=== PATIENT | female | born 1945 | race American Indian/Alaskan Native ===

== ENCOUNTER 2022-11-03 06:19 | Day surgery (SDC) | payer MEDICARE, OTHER ==
[~2022-11-03 06:19] MED LIST: CYCLOPENTOLATE 1% OPHTH DROPS 2 ML ONE; KETOROLAC 0.45% OPHTH DROPS ONE; PHENYLEPHRINE 2.5% OPHTH 2 ML DROPS ONE; PROPARACAINE 0.5% OPHTH DROPS 15 ML ONE
[2022-11-03] MEDS ORDERED: LACTATED RINGERS 1,000 ML IV ONE (06:23)
[2022-11-03] MEDS ORDERED: BRIMONIDINE 0.2% OPHTH DROPS 5 ML ONE (06:58)
[2022-11-03] MEDS ORDERED: EPINEPHrine 1 MG/ML AMP ONE (06:58)
[2022-11-03] MEDS ORDERED: TIMOLOL 0.5% OPHTH DROPS ONE (06:58)
[2022-11-03] MEDS ORDERED: TRIAMCIN/MOXIFLOX OPHTHALMIC 0.6 ML VIAL IO ONE ×2 (06:58→07:40)
[2022-11-03] MEDS ORDERED: BSS/LIDOCAINE/EPINEPHRINE 1 ML VIAL ONE (06:59)
--- NOTE | 2022-11-03 07:05 | ANESTHESIA ---
Pre-Anesthesia VS, & Labs - Diagnosis left senile combined cataract - Procedure left cataract extraction with IOL Vital Signs: Temp Pulse Resp BP Pulse Ox O2 Flow Rate 36.3 C L 82 16 129/70 97 11/03/22 06:31 11/03/22 06:31 11/03/22 06:31 11/03/22 06:31 11/03/22 06:31 Height: 5 ft 6 in Weight (kg): 81 kg Body Mass Index: 28.8 BMI Classification: Overweight - NPO >8 hours - Is Patient ?: No - Lab Results Current Lab Results: Laboratory Tests 11/03/22 06:49: POC Whole Bld Glucose 130 H Home Medications and Allergies Home Medications: Ambulatory Orders Ascorbic Acid [Vitamin C] 500 mg PO DAILY 11/02/22 Atorvastatin Calcium 40 mg PO DAILY PM 11/02/22 Cholecalciferol (Vitamin D3) [Vitamin D3] 1,000 unit PO DAILY 11/02/22 Clopidogrel Bisulfate [Plavix] 75 mg PO DAILY 11/02/22 Colestipol HCl [Colestid] 1 gm PO DAILY 11/02/22 Docusate Sodium 100Mg Capsule [Colace 100Mg Capsule] 1 tab ORAL PRN PRN 11/02/22 Famotidine 40 mg PO DAILY 11/02/22 Isosorbide Mononitrate [Isosorbide Mononitrate ER] 60 mg PO DAILY 11/02/22 Multivitamin 1 each PO DAILY 11/02/22 Pantoprazole [Protonix] 40 mg PO DAILY 11/02/22 Sertraline [Zoloft] 25 mg PO DAILY 11/02/22 Torsemide 10 mg PO DAILY 11/02/22 carvediloL [Coreg] 25 mg PO DAILY PM 11/02/22 Ascorbic Acid [Vitamin C] 500 mg PO DAILY 11/02/22 Atorvastatin Calcium 40 mg PO DAILY PM 11/02/22 Cholecalciferol (Vitamin D3) [Vitamin D3] 1,000 unit PO DAILY 11/02/22 Clopidogrel Bisulfate [Plavix] 75 mg PO DAILY 11/02/22 Colestipol HCl [Colestid] 1 gm PO DAILY 11/02/22 Docusate Sodium 100Mg Capsule [Colace 100Mg Capsule] 1 tab ORAL PRN PRN 11/02/22 Famotidine 40 mg PO DAILY 11/02/22 Isosorbide Mononitrate [Isosorbide Mononitrate ER] 60 mg PO DAILY 11/02/22 Multivitamin 1 each PO DAILY 11/02/22 Pantoprazole [Protonix] 40 mg PO DAILY 11/02/22 Sertraline [Zoloft] 25 mg PO DAILY 11/02/22 Torsemide 10 mg PO DAILY 11/02/22 carvediloL [Coreg] 25 mg PO DAILY PM 11/02/22 Anes History & Medical History - Anesthetic History Anesthesia Complications: reports: No previous complications - Medical History Cardiovascular: reports: Congestive heart failure, Hypertension, [place] Pulmonary: reports: None Gastrointestinal: reports: None Musculoskeletal: reports: None Endocrine/Autoimmune: reports: Type 2 diabetes Smoking Status: Never smoker History of Cancer?: No - Surgical History General: reports: Cholecystectomy Gynecologic: reports: Hysterectomy Orthopedic: reports: Hip replacement, Knee replacement, Other Exam General: Alert, Oriented x3 Dental: WNL Mouth Opening: Greater than 4 Fingerbreadths Neck Mobility: Normal Mallampati classification: III Thyromental Distance: greater than 6 cm Respiratory: Lungs clear Cardiovascular: Regular rate Plan Anesthesia Type: MAC Consent for Procedure(s) Verified and Reviewed: Yes Code Status: Attempt Resuscitation ASA classification: 4-Incapacitating disease Is this case an emergency?: No
[2022-11-03] MEDS ORDERED: MIDAZOLAM 2 MG/2 ML VIAL ONE (07:28)
[2022-11-03] MEDS ORDERED: BRIMONIDINE 0.2% OPHTH DROPS 5 ML OPTH ONE (07:39)
[2022-11-03] MEDS ORDERED: EPINEPHrine 1 MG/ML AMP IR ONE (07:39)
[2022-11-03] MEDS ORDERED: TIMOLOL 0.5% OPHTH DROPS OPTH ONE (07:39)
[2022-11-03] MEDS ORDERED: BSS/LIDOCAINE/EPINEPHRINE 1 ML SYRINGE IO ONE (07:40)
[2022-11-03] MEDS ORDERED: VANCOMYCIN OPHTH (TOPICAL) 10 MG/ML SYRINGE TOP ONE (07:40)
[2022-11-03] MEDS ORDERED: PROPARACAINE 0.5% OPHTH DROPS 15 ML EACHEYE ONE (07:40)
[2022-11-03] MEDS ORDERED: LACTATED RINGERS 700 ML IV ONE (07:51)
--- NOTE | 2022-11-03 08:00 | OPERATIVE REPORT ---
Operative Report - Other Other Information/Narrative: Date of Surgery: 11/03/22 Preop Dx: Visually significant cataract left eye. This was the first cataract surgery. Postop Dx: Same Procedure: Phacoemulsification with posterior chamber intraocular lens implant left eye Surgeon: Dr. Rick Martinez Anesthesia: Monitored anesthesia care Complications: None Operative Indications: This is a 77-year-old F with progressive vision loss in the left eye due to 3-4+ nuclear sclerotic, 2+ cortical, and vacuolar cataract. Best corrected visual acuity was 20/100 with glare to light perception vision in the left eye. Indications for surgery were: - Overall decrease in vision - Difficulty seeing words on a computer screen - Difficulty reading - Difficulty seeing words, closed captions, or game scores on TV - Difficulty seeing street signs - Difficulty driving in low light or at night - Difficulty driving at night because of headlights from other vehicles - Difficulty with glare or bright lights in any situation The patient was consented at length concerning the risks and benefits of cataract surgery after which the patient expressed a desire to proceed with surgery. Operative Procedure: The patient was taken into OR#3 and placed under monitored anesthesia care. A surgical time-out was conducted confirming correct patient, correct procedure, and correct surgical site. The patient was given topical anesthesia and then prepped and draped in the usual sterile fashion. The eye was entered at the 6 and 3 oclock positions. Intracameral Shugarcaine was injected into the anterior chamber followed by a dispersive viscoelastic. A continuous-tear curvilinear capsulorhexis was performed. The nucleus was hydrodissected and phacoemulsified. The cortex was evacuated using automated infusion and aspiration. A cohesive viscoelastic was injected into the capsular bag and a 15.5 diopter intraocular lens was inserted into the bag. Infusion and aspiration were used to evacuate the viscoelastic materials from the eye. The wounds were hydrated and the eye inflated to physiologic pressure using balanced salt solution. Approximately 0.25ml of a mixture of triamcinolone and moxifloxacin was injected trans-sclerally into the vitreous in the inferotemporal quadrant using a 30 gauge cannula. An additional 0.25ml of a mixture of triamcinolone and moxifloxacin was injected subconjunctivally in the superior quadrant for infection and inflammation prophylaxis. Wound integrity was checked with Weck-Luz sponges. The patient was taken from the operating room in good condition and given post-op instructions.
[2022-11-03 08:05] VITALS: O2SAT 98
[2022-11-03 08:16] VITALS: BP 124/70
--- NOTE | 2022-11-03 08:16 | ANESTHESIA POST OP EVALUATION ---
Anesthesia Post Eval - Post Anesthesia Eval Vitals: Last Vital Signs Temp 36.4 C L 11/03/22 08:06 Pulse 80 11/03/22 08:06 Resp 16 11/03/22 08:06 BP 124/70 11/03/22 08:06 Pulse Ox 98 11/03/22 08:06 O2 Flow Rate CV Function Including HR & BP: Stable Pain Control: Satisfactory Nausea & Vomiting: Negative Mental Status: Baseline Respiratory Status: Airway Patent Hydration Status: Satisfactory Anesthesia Complications: None
== END 2022-11-03 06:20 | disposition home or self-care (01) ==
LOC: SDS 06:19
PROVIDERS: ATTEND Ophthalmology
DX: E11.36 Type 2 diabetes mellitus with diabetic cataract (principal); H25.812 Combined forms of age-related cataract, left eye; I11.0 Hypertensive heart disease with heart failure; I50.9 Heart failure, unspecified
CPT/HCPCS: 66984; A9270; J3490; J7120; V2787

== ENCOUNTER 2022-12-01 07:46 | Day surgery (SDC) | payer MEDICARE, OTHER ==
[~2022-12-01 07:46] MED LIST changes: +BRIMONIDINE 0.2% OPHTH DROPS 5 ML ONE; +BSS/LIDOCAINE/EPINEPHRINE 1 ML VIAL ONE; +EPINEPHrine 1 MG/ML AMP ONE; +TIMOLOL 0.5% OPHTH DROPS ONE; +TRIAMCIN/MOXIFLOX OPHTHALMIC 0.6 ML VIAL IO ONE
[2022-12-01] MEDS ORDERED: LACTATED RINGERS 1,000 ML IV ONE ×2 (08:25→09:26)
--- NOTE | 2022-12-01 08:41 | ANESTHESIA ---
Pre-Anesthesia VS, & Labs - Diagnosis Right eye combined senile cataract - Procedure Right eye cataract extraction with IOL implant Vital Signs: Temp Pulse Resp BP Pulse Ox O2 Flow Rate 36.4 C L 85 19 145/93 H 96 12/01/22 08:22 12/01/22 08:22 12/01/22 08:22 12/01/22 08:22 12/01/22 08:22 Height: 5 ft 6 in Weight (kg): 80 kg Body Mass Index: 28.4 BMI Classification: Overweight - NPO >8 hours - Is Patient ?: No - Lab Results Current Lab Results: Laboratory Tests 12/01/22 08:22: POC Whole Bld Glucose 165 H Lab results reviewed: Yes Home Medications and Allergies Ascorbic Acid [Vitamin C] 500 mg PO DAILY 11/02/22 Atorvastatin Calcium 40 mg PO DAILY PM 11/02/22 Cholecalciferol (Vitamin D3) [Vitamin D3] 1,000 unit PO DAILY 11/02/22 Clopidogrel Bisulfate [Plavix] 75 mg PO DAILY 11/02/22 Colestipol HCl [Colestid] 1 gm PO DAILY 11/02/22 Docusate Sodium 100Mg Capsule [Colace 100Mg Capsule] 1 tab ORAL PRN PRN 11/02/22 Famotidine 40 mg PO DAILY 11/02/22 Isosorbide Mononitrate [Isosorbide Mononitrate ER] 60 mg PO DAILY 11/02/22 Multivitamin 1 each PO DAILY 11/02/22 Pantoprazole [Protonix] 40 mg PO DAILY 11/02/22 Sertraline [Zoloft] 25 mg PO DAILY 11/02/22 Torsemide 10 mg PO DAILY 11/02/22 carvediloL [Coreg] 25 mg PO DAILY PM 11/02/22 Allergies/Adverse Reactions: Allergies Allergy/AdvReac Type Severity Reaction Status Date / Time diphenhydramine AdvReac Unknown Verified 11/03/22 08:08 [From Jailyn] Anes History & Medical History - Anesthetic History Anesthesia Complications: reports: No previous complications - Medical History Cardiovascular: reports: Congestive heart failure, Hypertension, [place] Pulmonary: reports: None Gastrointestinal: reports: None Urinary: reports: None Neuro: reports: None Musculoskeletal: reports: None Endocrine/Autoimmune: reports: Type 2 diabetes Blood Disorders: reports: None Skin: reports: None Smoking Status: Never smoker Psychosocial: reports: No issues indicated History of Cancer?: No - Surgical History General: reports: Cholecystectomy Eyes Ears Nose Throat (EENT): reports: Cataracts Gynecologic: reports: Hysterectomy Orthopedic: reports: Hip replacement, Knee replacement, Other Exam General: Alert, Oriented x3, Cooperative, No acute distress Dental: WNL Mouth Openin Fingerbreadth Neck Mobility: Normal Mallampati classification: II Thyromental Distance: 4-6 cm Mental/Cognitive Status: Alert/Oriented X3, Normal for patient Plan Anesthesia Type: MAC Consent for Procedure(s) Verified and Reviewed: Yes Code Status: Attempt Resuscitation ASA classification: 4-Incapacitating disease Is this case an emergency?: No
[2022-12-01] MEDS ORDERED: MIDAZOLAM 2 MG/2 ML VIAL ONE ×2 (09:09→09:20)
[2022-12-01] MEDS ORDERED: BRIMONIDINE 0.2% OPHTH DROPS 5 ML OPTH ONE (09:12)
[2022-12-01] MEDS ORDERED: EPINEPHrine 1 MG/ML AMP IR ONE (09:12)
[2022-12-01] MEDS ORDERED: TIMOLOL 0.5% OPHTH DROPS OPTH ONE (09:12)
[2022-12-01] MEDS ORDERED: BSS/LIDOCAINE/EPINEPHRINE 1 ML SYRINGE IO ONE (09:13)
[2022-12-01] MEDS ORDERED: VANCOMYCIN OPHTH (TOPICAL) 10 MG/ML SYRINGE TOP ONE (09:14)
[2022-12-01] MEDS ORDERED: TRIAMCIN/MOXIFLOX OPHTHALMIC 0.6 ML VIAL IO ONE (09:14)
[2022-12-01] MEDS ORDERED: PROPARACAINE 0.5% OPHTH DROPS 15 ML EACHEYE ONE (09:14)
--- NOTE | 2022-12-01 09:36 | OPERATIVE REPORT ---
Operative Report - Other Other Information/Narrative: Date of Surgery: 12/01/22 Preop Dx: Visually significant cataract right eye. Cataract surgery was performed in the left eye on [id number]. Postop Dx: Same Procedure: Phacoemulsification with posterior chamber intraocular lens implant right eye Surgeon: Dr. Rick Martinez Anesthesia: Monitored anesthesia care Complications: None Operative Indications: This is a 77-year-old F with progressive vision loss in the right eye due to 3-4+ nuclear sclerotic, 2+ cortical, and vacuolar cataract. Best corrected visual acuity was 20/30 with glare to 20/250 vision in the right eye. Indications for surgery were: - Overall decrease in vision - Difficulty seeing words on a computer screen - Difficulty reading - Difficulty seeing words, closed captions, or game scores on TV - Difficulty seeing street signs - Difficulty with glare or bright lights in any situation The patient was consented at length concerning the risks and benefits of cataract surgery after which the patient expressed a desire to proceed with surgery. Operative Procedure: The patient was taken into OR#3 and placed under monitored anesthesia care. A surgical time-out was conducted confirming correct patient, correct procedure, and correct surgical site. The patient was given topical anesthesia and then prepped and draped in the usual sterile fashion. The eye was entered at the 6 and 3 oclock positions. Intracameral Shugarcaine was injected into the anterior chamber followed by a dispersive viscoelastic. A continuous-tear curvilinear capsulorhexis was performed. The nucleus was hydrodissected and phacoemulsified. The cortex was evacuated using automated infusion and aspiration. A cohesive viscoelastic was injected into the capsular bag and a 17.0 diopter intraocular lens was inserted into the bag. Infusion and aspiration were used to evacuate the viscoelastic materials from the eye. The wounds were hydrated and the eye inflated to physiologic pressure using balanced salt solution. Approximately 0.25ml of a mixture of triamcinolone and moxifloxacin was injected trans-sclerally into the vitreous in the inferotemporal quadrant using a 30 gauge cannula. An additional 0.25ml of a mixture of triamcinolone and moxifloxacin was injected subconjunctivally in the superior quadrant for infection and inflammation prophylaxis. Wound integrity was checked with Weck-Luz sponges. The patient was taken from the operating room in good condition and given post-op instructions.
[2022-12-01 10:11] VITALS: BP 151/77; O2SAT 95
--- NOTE | 2022-12-01 10:51 | ANESTHESIA POST OP EVALUATION ---
Anesthesia Post Eval - Post Anesthesia Eval Vitals: Last Vital Signs Temp 36.4 C L 12/01/22 10:05 Pulse 85 12/01/22 10:05 Resp 16 12/01/22 10:05 BP 151/77 H 12/01/22 10:05 Pulse Ox 95 12/01/22 10:05 O2 Flow Rate CV Function Including HR & BP: Stable Pain Control: Satisfactory Nausea & Vomiting: Negative Mental Status: Baseline Respiratory Status: Airway Patent Hydration Status: Satisfactory Anesthesia Complications: None
== END 2022-12-01 07:47 | disposition home or self-care (01) ==
LOC: SDS 07:46
PROVIDERS: ATTEND Ophthalmology
DX: H25.811 Combined forms of age-related cataract, right eye (principal); E11.36 Type 2 diabetes mellitus with diabetic cataract; I11.0 Hypertensive heart disease with heart failure; I50.9 Heart failure, unspecified
CPT/HCPCS: 66984; A9270; J3490; J7120

== ENCOUNTER 2023-08-29 18:39 | Outpatient (CLI) | payer MEDICARE, OTHER | END 2023-08-29 23:59 | disposition EMS.NT | LOC: EMS 18:39 | DX: R09.89 Other specified symptoms and signs involving the circulatory and respiratory systems (principal) ==

== ENCOUNTER 2023-09-05 18:04 | Emergency (ER) | payer MEDICARE, OTHER ==
[2023-09-05 18:29] VITALS: O2SAT 98
--- NOTE | 2023-09-05 18:54 | ED Physician Documentation ---
PD HPI CHEST PAIN - Stated complaint Stated Complaint: CHEST PX - Chief complaint Chief Complaint: Cardiac - History obtained from History obtained from: Patient - Additional information Additional information: 78-year-old woman with DM2, stage IV CKD and CHF presents with severe left rib pain. A week ago to the day she was choking on something and her son-in-law performed the Heimlich maneuver twice. Since then she has had severe pain on the left side especially if she takes a deep breath or coughs. No other injuries. PD PAST MEDICAL HISTORY - Past Medical History Cardiovascular: Congestive heart failure, Hypertension, [place] Respiratory: None Neuro: None Endocrine/Autoimmune: Type 2 diabetes GI: GERD : Renal insuffiency HEENT: None Psych: None Musculoskeletal: Osteoarthritis Derm: None - Past Surgical History Past Surgical History: Yes General: Cholecystectomy Ortho: Hip replacement, Knee replacement, Other /[employer]ER: Hysterectomy HEENT: Cataracts - Present Medications Home Medications: Ambulatory Orders Medication Instructions Recorded Confirmed Ascorbic Acid [Vitamin C] 500 mg PO DAILY 11/02/22 09/05/23 Atorvastatin Calcium 40 mg PO DAILY PM 11/02/22 09/05/23 Cholecalciferol (Vitamin D3) 1,000 unit PO DAILY 11/02/22 09/05/23 [Vitamin D3] Clopidogrel Bisulfate [Plavix] 75 mg PO DAILY 11/02/22 09/05/23 Colestipol HCl [Colestid] 1 gm PO DAILY 11/02/22 09/05/23 Docusate Sodium 100Mg Capsule 1 tab ORAL PRN PRN 11/02/22 09/05/23 [Colace 100Mg Capsule] Famotidine 40 mg PO DAILY 11/02/22 09/05/23 Isosorbide Mononitrate [Isosorbide 60 mg PO DAILY 11/02/22 09/05/23 Mononitrate ER] Multivitamin 1 each PO DAILY 11/02/22 09/05/23 Pantoprazole [Protonix] 40 mg PO DAILY 11/02/22 09/05/23 Sertraline [Zoloft] 25 mg PO DAILY 11/02/22 09/05/23 Torsemide 10 mg PO DAILY 11/02/22 09/05/23 carvediloL [Coreg] 25 mg PO DAILY PM 11/02/22 09/05/23 Oxycodone HCl/Acetaminophen 1 - 2 each PO Q6H PRN #20 tablet 09/05/23 [Percocet 5-325 mg Tablet] glipiZIDE [Glucotrol] 5 mg PO DAILY 09/05/23 09/05/23 metOLazone [Zaroxolyn] 2.5 mg PO ONCE 09/05/23 09/05/23 - Allergies Allergies/Adverse Reactions: Allergies Allergy/AdvReac Type Severity Reaction Status Date / Time diphenhydramine AdvReac Unknown Verified 09/05/23 18:12 [From Benadryl] - Social History Does the pt smoke?: No Smoking Status: Never smoker Does the pt drink ETOH?: No Does the pt have substance abuse?: No - Immunizations Immunizations are current?: Yes - POLST Patient has POLST: No PD ED PE NORMAL - Vitals Vital signs reviewed: Yes - General General: Alert and oriented X 3, Other (She appears uncomfortable and wincing her breaths.) - Cardiac Cardiac: RRR, No murmur, Other (Quite tender over the left chest) - Respiratory Respiratory: No respiratory distress, Clear bilaterally - Abdomen Abdomen: Non tender - Neuro Neuro: Alert and oriented X 3 Results - Vitals Vitals: Vital Signs - 24 hr 09/05/23 18:15 Temperature 37 C Heart Rate 92 Respiratory 20 Rate Blood Pressure 139/82 H O2 Saturation 98 Oxygen O2 Source Room air - EKG (time done) 1827 EKG releavant findings:: EKG personally interpreted by author of this note. Relevant findings are: Rate: Rate (enter#) (83) Rhythm: NSR (w pvc) [place]: LAD Intervals: Normal OR QRS: Normal Ischemia: Non specific changes. No: ST elevation c/w ischemia - Rads (name of study) Chest CT= Relevant Findings:: Final report received, EMP independent interpretation of test PD Medical Decision Making - ED course ED course: She is a week out from having the Heimlich maneuver performed on her and is having significant left chest pain. Suspected rib fractures but actually on CT imaging she has a pulmonary contusion with small pleural effusions. She was feeling much better after an oxycodone here. I asked our respiratory therapist to give her an incentive spirometer and teach her on its use. Follow-up with her PCP was advised with potential repeat imaging. Departure - Departure Disposition: 01 Home, Self Care Clinical Impression: Pleural effusion Left pulmonary contusion Qualifiers: Encounter type: initial encounter Qualified Code(s): S27.321A - Contusion of lung, unilateral, initial encounter Condition: Good Record reviewed to determine appropriate education?: Yes Instructions: ED Contusion Chest Wall Prescriptions: Oxycodone HCl/Acetaminophen [Percocet 5-325 mg Tablet] 1 - 2 each PO Q6H PRN #20 tablet PRN Reason: pain Comments: I sent your prescription electronically to [facility] [place]. As discussed you have a bruised lung on the left with some fluid around your lung. Follow-up with your doctor in a week or 2, they should strongly consider repeat imaging but I do not think there is too much of a xiong to it since its already been a week since the end . Use the incentive spirometer as often as you can, it will hurt, but it is important to keep your lungs open. I am prescribing a short course of narcotic pain medication for you. These are potentially dangerous and addictive medications that should be used carefully. These medications may constipate you. Take an rerl-pok-dljkkvj stool softener (docusate) twice daily with plenty of water while taking these medications. If you go 24 hours without a bowel movement, take ssdx-kjv-[id number] miralax, per package instructions. Do not drink or drive while taking these medications. If you received narcotic or sedating medications while in the emergency department, do not drive for 24 hours. Store this medication in a safe, secure place and out of reach of children. It is a violation of federal law to give or sell this medication to another person or to use in a manner other than prescribed. The ED will not refill narcotic prescriptions, including prescriptions lost or stolen. To dispose of unwanted medications: 1. [facility] provides a drop box for medication in pill form only (no liquids) 8:00 am to 4:30 p.m. Monday-Monday in the lobby of the [facility], [address] [place] [address]. Empty pills into ziplock bag before disposal. Call [phone] for information. 2.[employer] is a free service available to all [facility] residents. Go to [email or web address] Note that many narcotic pain relievers also contain Tylenol/acetaminophen. Please ensure that your total dose of acetaminophen from all sources does not exceed 3 g (3000 mg) per day. Forms: PCP List
[2023-09-05] MEDS: oxyCODONE 5 MG TABLET PO STA (18:59)
--- NOTE | 2023-09-05 20:06 | CT Report ---
PROCEDURE: Chest WO INDICATIONS: Left chest wall injury TECHNIQUE: A CT scan of the chest was performed. Intravenous contrast media was not administered. Images were re corded and evaluated at appropriate window settings. Reformats: axial MIP of the chest, coronal and s agittal. For radiation dose reduction, the following was used: automated exposure control, adjustment of mA and/or kV according to patient size. COMPARISON: None. FINDINGS: Image quality: Diagnostic. Chest wall and lower neck: No thyroid nodule which requires sonographic follow up. No axillary or sup raclavicular adenopathy by size. Lungs and pleura: Small bilateral pleural effusion with adjacent compressive atelectasis in posterior aspect of bilateral lower lobe. Mild dependent atelectasis in posterior aspect of left lingular segm ent is seen. No pneumothorax. Mild centrilobular emphysema. No suspicious pulmonary nodule. Central a nd peripheral airway is patent. Mediastinum: Heart size is enlarged. No pericardial effusion. No large vessel abnormality. No mediast inal adenopathy by size criteria. No mediastinal hematoma. Ztyd-qj-avztntni atherosclerotic calcific ations in coronary arteries are seen. Bones: No aggressive osseous abnormality. No displaced rib fracture. Upper Abdomen: Unremarkable. IMPRESSION: 1. Small bilateral pleural effusion and atelectasis versus mild contusion in anterolateral aspect of left lingular segment. Compressive atelectasis in posterior aspect of bilateral lower lobes. No or pn eumothorax. Central and peripheral airway is patent. 2. No mediastinal hematoma. No mediastinal or hilar lymphadenopathy. Mild to moderate atherosclerotic disease. Cardiomegaly, no pericardial effusion. 3. No displaced rib fractures. No acute vertebral body compression fracture. No displaced sternal fra cture. Degenerative disc disease throughout thoracic spine. Reviewed by: Gian Arambula MD on 09/05/2023 8:05 PM PDT Approved by: Gian Arambula MD on 09/05/2023 8:05 PM PDT Station ID: [id number]
[2023-09-05] MEDS: oxyCODONE/ACET 5/325 Prepack 4 PO STA (20:30)
[2023-09-05 21:23] VITALS: BP 128/80
== END 2023-09-05 21:21 | disposition home or self-care (01) ==
LOC: ED 18:04
DX: S27.321A Contusion of lung, unilateral, initial encounter (principal); J90 Pleural effusion, not elsewhere classified; X58.XXXA Exposure to other specified factors, initial encounter; Y93.89 Activity, other specified
CPT/HCPCS: 71250; 93005; 99284; A9270